=== PATIENT | female | born 2000 | race Caucasian/White ===

== ENCOUNTER 2020-03-27 05:30 | Emergency (ER) | payer MEDICAID, OTHER ==
[~2020-03-27] VITALS: Ht 160 cm; Wt 53.5 kg
--- NOTE | 2020-03-27 05:47 | NUR ---
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 Patient c/o pain on left foot, denies any nausea/vomiting, shortness of breath, able to speak in full sentences.
--- NOTE | 2020-03-27 05:58 | NUR ---
Dr. Mathis at bedside for MSE.
[2020-03-27 06:17] VITALS: BP 127/68
--- NOTE | 2020-03-27 06:17 | NUR ---
Patient discharged to home in stable condition. Written and verbal after care instructions given. Patient verbalizes understanding of instructions. Stressed follow up or return to ER for worsening s/s.
== END 2020-03-27 06:18 | disposition home or self-care (01) ==
LOC: ER 05:35
DX: T63.2X1A Toxic effect of venom of scorpion, accidental (unintentional), initial encounter (principal); M79.672 Pain in left foot; Y92.89 Other specified places as the place of occurrence of the external cause; K50.90 Crohn's disease, unspecified, without complications
CPT/HCPCS: A4663

== ENCOUNTER 2021-12-16 08:30 | Emergency (ER) | payer OTHER ==
[~2021-12-16] VITALS: Ht 160 cm; Wt 63.5 kg
[2021-12-16 09:03] LABS: *URINE HCG, QUAL NEG (NEGATIVE)
[2021-12-16] MEDS ORDERED: IV NORMAL SALINE 1000 ML BAG IV ONE (09:15)
[2021-12-16] MEDS ORDERED: LOPERAMIDE HCL 2 MG CAPSULE PO ONE (09:15)
[2021-12-16] MEDS ORDERED: ONDANSETRON 4 MG/2 ML VIAL IV ONE (09:15)
[2021-12-16] MEDS ORDERED: KETOROLAC TROMETHAMINE 15 MG INJ IVP ONE (09:15)
[2021-12-16] MEDS ORDERED: PANTOPRAZOLE SODIUM 40 MG VIAL IV ONE (09:15)
[2021-12-16] MEDS ORDERED: KETOROLAC TROMETHAMINE 15 MG INJ ONE (09:27)
[2021-12-16] MEDS ORDERED: LOPERAMIDE HCL 2 MG CAPSULE ONE (09:28)
[2021-12-16] MEDS ORDERED: ONDANSETRON 4 MG/2 ML VIAL ONE (09:28)
[2021-12-16] MEDS ORDERED: PANTOPRAZOLE SODIUM 40 MG VIAL ONE (09:28)
[2021-12-16] MEDS ORDERED: ONDA-104 PO (11:11)
[2021-12-16 11:23] VITALS: BP 121/66
--- NOTE | 2021-12-16 11:23 | NUR ---
IV removed. Catheter intact and site benign. Pressure and 4x4 gauze applied to site. No bleeding noted.
[2021-12-16 11:30] LABS: *BILIRUBIN,URIN NEGATIVE (NEGATIVE); *BLOOD, URINE TRACE (NEGATIVE); *CLARITY,URINE CLEAR (CLEAR); *COLOR,URINE YELLOW (YELLOW); *KETONES,URINE 4+ (NEGATIVE); *UROBILINOGEN,URINE 0.2 E.U./dl (NORMAL); LEUKOCYTE ESTERASE ,URINE NEGATIVE (NEGATIVE); NITRITE, URINE NEGATIVE (NEGATIVE); PH,URINE 5.5 (5.0-8.0); UGLUCOSE NEGATIVE (NEGATIVE)
[2021-12-16 17:40] LABS: BACTERIA,URINE FEW /HPF (NONE SEEN); RBC,URINE 0-3 /HPF (0-3); SQUAMOUS EPITHELIAL CELL,UR FEW /HPF (NONE SEEN); WBC,URINE 0-3 /HPF (0-3)
== END 2021-12-16 11:24 | disposition home or self-care (01) ==
LOC: ER 08:30
DX: A08.4 Viral intestinal infection, unspecified (principal); K50.90 Crohn's disease, unspecified, without complications
CPT/HCPCS: 84703; A4663; C9113; J1885; J2405; J7030

== ENCOUNTER 2023-03-06 11:34 | Emergency (ER) | payer MEDICAID, OTHER ==
[~2023-03-06] VITALS: Ht 160 cm; Wt 63.5 kg
[~2023-03-06 11:34] MED LIST: ONDA-104 PO
[2023-03-06] MEDS ORDERED: AMOX-430 PO (12:34)
[2023-03-06] MEDS ORDERED: AMOXICILLIN-CLAVUL 875-125MG TABLET ONE (12:37)
[2023-03-06] MEDS ORDERED: AMOXICILLIN-CLAVUL 875-125MG TABLET PO ONE (12:45)
[2023-03-06 12:49] VITALS: BP 129/71
== END 2023-03-06 12:49 | disposition home or self-care (01) ==
LOC: ER 11:44
DX: J03.90 Acute tonsillitis, unspecified (principal); K50.90 Crohn's disease, unspecified, without complications; D84.9 Immunodeficiency, unspecified; Z79.2 Long term (current) use of antibiotics; Z79.899 Other long term (current) drug therapy; Z20.822 Contact with and (suspected) exposure to COVID-19
CPT/HCPCS: 86403; A4663